=== PATIENT | female | born 2000 | race American Indian/Alaskan Native ===

== ENCOUNTER 2020-02-20 08:47 | Emergency (ER) | payer SELFPAY ==
[2020-02-20 09:02] VITALS: BP 119/69
--- NOTE | 2020-02-20 12:17 | Emergency Department Report ---
ED General Adult HPI - General Chief complaint: Medical Clearance Stated complaint: FLUID ON LEGS/BODY Time Seen by Provider: 02/20/20 11:33 Source: patient Mode of arrival: Ambulatory Limitations: No Limitations - History of Present Illness Initial comments: This is a 19-year-old female nontoxic, well nourished in appearance, no acute signs of distress presents to the ED with c/o of acute on chronic intermittent bilateral knee and ankle swelling x3 years. Also stated that she has family history of heart conditions and is requesting for a cardiac work-up. Patient currently denies any symptoms of any chest pain, shortness of breath, fever, chills, nausea, vomiting, headache, stiff neck, bilateral leg swelling or pain. Patient stated she is currently asymptomatic. Denies any allergies or significant past medical history. -: year(s) Radiation: non-radiation Severity scale (0 -10): 0 Consistency: intermittent, now resolved Improves with: none Worsens with: none Associated Symptoms: denies other symptoms. denies: confusion, chest pain, cough, diaphoresis, fever/chills, headaches, loss of appetite, malaise, nausea/vomiting, rash, seizure, shortness of breath, syncope, weakness Treatments Prior to Arrival: none - Related Data Allergies Allergy/AdvReac Type Severity Reaction Status Date / Time No Known Allergies Allergy Unverified 02/20/20 09:05 ED Review of Systems ROS: Stated complaint: FLUID ON LEGS/BODY Other details as noted in HPI Comment: All other systems reviewed and negative Constitutional: denies: chills, fever Eyes: denies: eye pain, eye discharge, vision change ENT: denies: ear pain, throat pain Respiratory: denies: cough, shortness of breath, wheezing Cardiovascular: denies: chest pain, palpitations Endocrine: no symptoms reported Gastrointestinal: denies: abdominal pain, nausea, diarrhea Genitourinary: denies: urgency, dysuria, discharge Musculoskeletal: denies: back pain, joint swelling, arthralgia Skin: denies: rash, lesions Neurological: denies: headache, weakness, paresthesias Psychiatric: denies: anxiety, depression Hematological/Lymphatic: denies: easy bleeding, easy bruising ED Past Medical Hx - Past Medical History Previous Medical History?: No - Surgical History Past Surgical History?: No - Social History Smoking Status: Never Smoker Substance Use Type: None ED Physical Exam - General Limitations: No Limitations General appearance: alert, in no apparent distress - Head Head exam: Present: atraumatic, normocephalic - Eye Eye exam: Present: normal appearance - Neck Neck exam: Present: normal inspection, full ROM. Absent: tenderness, meningismus, lymphadenopathy - Respiratory Respiratory exam: Present: normal lung sounds bilaterally. Absent: respiratory distress, wheezes, rales, rhonchi, stridor, chest wall tenderness, accessory muscle use, decreased breath sounds, prolonged expiratory - Cardiovascular Cardiovascular Exam: Present: regular rate, normal rhythm, normal heart sounds. Absent: bradycardia, tachycardia, irregular rhythm, systolic murmur, diastolic murmur, rubs, gallop - Extremities Exam Extremities exam: Present: normal inspection, full ROM, normal capillary refill. Absent: tenderness, joint swelling, calf tenderness - Back Exam Back exam: Present: normal inspection, full ROM. Absent: tenderness, CVA tenderness (L), muscle spasm, paraspinal tenderness, vertebral tenderness, rash noted - Neurological Exam Neurological exam: Present: alert, oriented X3, normal gait - Psychiatric Psychiatric exam: Present: normal affect, normal mood - Skin Skin exam: Present: warm, dry, intact, normal color. Absent: rash ED Course Vital Signs 02/20/20 09:01 Temperature 98.3 F Pulse Rate 73 Respiratory 20 Rate Blood Pressure 119/69 O2 Sat by Pulse 99 Oximetry - Reevaluation(s) Reevaluation #1: 02/20/20 12:14 Patient is speaking in full sentences with no signs of distress noted. ED Medical Decision Making - Medical Decision Making Patient is stable and was examined by me. Exam is unremarkable. Patient stated after the exam that she needs to leave. Patient was instructed that I may perform some laboratory tests for further evaluation but patient refused and signed AGAINST MEDICAL ADVICE. Patient was educated and instructed of my concerns but patient refused and signed AGAINST MEDICAL ADVICE. Patient was given strict precautions to follow-up with a primary care doctor and is project manager as soon as possible or if symptoms worsen and continue to return to the emergency room soon as possible. At time of signing AMA, the patient does not seem toxic or ill in appearance. No acute signs of distress noted. No further questions noted by the patient. Critical care attestation.: If time is entered above; I have spent that time in minutes in the direct care of this critically ill patient, excluding procedure time. ED Disposition Clinical Impression: Leg swelling Disposition: Z MED SCREENING EXAM-LEFT Is pt being admited?: No Condition: Undetermined Additional Instructions: Follow-up with a primary care and is project manager doctor in [place] or if symptoms worsen and continue return to emergency room as soon as possible. Your condition may be serious as instructed and educated today in the ER but you decided to leave AGAINST MEDICAL ADVICE. It is highly recommended to see a provider as soon as possible to rule out serious complications that was described to you during your ED stay. Referrals: HANY YODER MD [Staff Physician] - [facility] PRIMARY MD CHEYANNE [Primary Care Provider] - [facility] EVANS PETERSON MD [Staff Physician] - [facility] Forms: AMA Form
== END 2020-02-20 12:13 | disposition left against medical advice (07) ==
LOC: ED 08:47
DX: Z00.8 Encounter for other general examination (principal); Z53.21 Procedure and treatment not carried out due to patient leaving prior to being seen by health care provider